=== PATIENT | female | born 2000 | race Caucasian/White ===

== ENCOUNTER → 2025-03-10 | Day surgery (SDC) | payer BC, OTHER ==
[~2025-03-10] MED LIST: ANESTHESIA TRAY IN PYXIS 1 EA TRAY MC ONE; BUPIVACAINE MPF 0.5% W/EPI INJ 30 ML VIAL ONE; CELLULOSE,OXIDIZED 1 EA PACK MC ONE; FENTANYL PF 250MCG/5ML AMPUL ONE; FERRIC SUBSULFATE 8 GM/VIAL VIAL ONE; MIDAZOLAM HCL 2 MG/2ML VIAL ONE; ROCURONIUM BROMIDE 50 MG/5 ML ONE; SILVER NITRATE APPLICATOR 1 EA BOX ONE; SILVER SULFADIAZINE CREAM 25 GM TUBE ONE
[2025-03-10 09:57] LABS: PLATELET COUNT (AUTO) 290 K/uL (150-450); RED BLOOD CELL COUNT(AUTO) 4.77 MIL/uL (4.0-5.2); RED CELL DISTRIBUTION WIDTH 12.5 % (11.5-15.0); WHITE BLOOD COUNT (AUTO) 8.0 K/uL (4.3-11.0)
[2025-03-10 10:04] LABS: APPEARANCE,URINE CLEAR (CLEAR); BLOOD, URINE 2+ Ery/uL (NEGATIVE); LEUKOCYTE ESTERASE ,URINE NEGATIVE (NEGATIVE); NITRITE, URINE NEGATIVE (NEGATIVE); UGLUCOSE NEGATIVE (NEGATIVE)
[2025-03-10 10:06] LABS: PREGNANCY TEST URINE QUAL NEGATIVE (NEGATIVE)
[2025-03-10 10:10] LABS: CALCIUM, SERUM 9.2 mg/dL (8.5-10.1); CREATININE 0.9 mg/dL (0.6-1.3); SODIUM SERUM 141.0 mmol/L (136-145); UREA NITROGEN, BLOOD 15.0 mg/dL (7-18)
[2025-03-10 10:13] LABS: INR 1.03 (0.91-1.10)
[2025-03-10 10:20] LABS: ADD URINE CULTURE NO
== END | disposition home or self-care (01) ==
LOC: DS 09:01
PROVIDERS: ATTEND Obstetrics & Gynecology
DX: N87.1 Moderate cervical dysplasia (principal); Z79.899 Other long term (current) drug therapy; Z98.890 Other specified postprocedural states
CPT/HCPCS: 36415; 57520; 80048; 81001; 84703; 85025; 85610; 85730; A4338; A6402; J0330; J1644; J2250; J2704; J3010; J3490; J7030